=== PATIENT | female | born 1935 | race African-American/Black ===

== ENCOUNTER 2017-07-30 16:34 | Inpatient (IN) | payer OTHER ==
[~2017-07-30] VITALS: Ht 152.4 cm; Wt 66.2 kg
[2017-07-30] MEDS ORDERED: SINGULAIR10 MG (16:56)
[2017-07-30] MEDS ORDERED: MOXIFLOXACIN H400 MG (16:56)
[2017-07-30] MEDS ORDERED: ABATINEX680 MG (16:57)
[2017-07-30] MEDS ORDERED: GLIPIZIDE ER2.5 MG (16:58)
[2017-07-30] MEDS ORDERED: LEVOTHYROXINE50 MCG (16:59)
[2017-07-30] MEDS ORDERED: ATORVASTATIN CA20 MG (16:59)
== END 2017-08-06 11:08 | disposition home or self-care (01) | DRG 193 ==
LOC: ER 16:34 → MEDI 07-31 08:30
PROC: 3E0F7GC Introduction of Other Therapeutic Substance into Respiratory Tract, Via Natural or Artificial Opening (ICD-10-PCS; principal; 2017-07-31)
DX: J18.9 Pneumonia, unspecified organism (principal); E11.00 Type 2 diabetes mellitus with hyperosmolarity without nonketotic hyperglycemic-hyperosmolar coma (NKHHC); J45.41 Moderate persistent asthma with (acute) exacerbation; Z88.0 Allergy status to penicillin